=== PATIENT | female | born 1975 | race Caucasian/White ===

== ENCOUNTER 2016-07-19 08:54 | Emergency (ER) | payer MEDICAID ==
[2016-07-19] MEDS ORDERED: TRIAMCINOLONE ACETONIDE 0.1% CREAM 15 GM TOP ONE (09:41)
--- NOTE | 2016-07-19 09:46 | ER Document Report ---
ED Skin Rash/Insect Bite/Abscs - General Chief Complaint: Rash Stated Complaint: RASH ON FIGERS Time seen by provider: 09:42 Mode of Arrival: Ambulatory Information source: Patient Notes: 41-year-old female presents to ED for rash to her fingers on both hands. She states she is had this off and on for several months. She states the triamcinolone 5% cream has helped in the past. She been told that this was contact dermatitis. TRAVEL OUTSIDE OF THE [place] IN LAST 30 DAYS: No - HPI Patient complains to provider of: Skin rash/lesion Onset: Other - Several days this time Onset/Duration: Gradual Quality of pain: Burning Severity: Moderate Pain Level: 3 Skin Character: Erythema, Rash, Vesicular Quality of rash: Itchy, Painful Identify cause: No Exacerbated by: Other - Triamcinolone cream Relieved by: Denies Similar symptoms previously: Yes Recently seen / treated by doctor: No - Related Data Allergies/Adverse Reactions: brompheniramine maleate [From Dimetapp Cold-Allergy (PE)] Allergy (Verified 08:57) phenylephrine HCl [From Dimetapp Cold-Allergy (PE)] Allergy (Verified 07/19/16 08:57) Sulfa (Sulfonamide Antibiotics) Allergy (Verified 07/19/16 08:57) Past Medical History - General Information source: Patient - Social History Smoking Status: Former Smoker Cigarette use (# per day): No Chew tobacco use (# tins/day): No Smoking Education Provided: No Frequency of alcohol use: Occasional Drug Abuse: None Occupation: [employer] with: Family Family History: Arthritis, COPD, CVA, DM, Hyperlipidemia, Malignancy, Thyroid Disfunction Patient has suicidal ideation: No Patient has homicidal ideation: No - Past Medical History Cardiac Medical History: Reports: None Pulmonary Medical History: Reports: None EENT Medical History: Reports: None Neurological Medical History: Reports: Hx Migraine Endocrine Medical History: Reports: None Renal/ Medical History: Reports: None Malignancy Medical History: Reports: None GI Medical History: Reports: None Musculoskeltal Medical History: Reports Hx Musculoskeletal Deformity, Reports Hx Musculoskeletal Trauma Skin Medical History: Reports None Psychiatric Medical History: Reports: None Traumatic Medical History: Reports: Hx Fractures - Left arm and right leg and nose Infectious Medical History: Reports: None Past Surgical History: Reports: Hx Section - 3, Hx Orthopedic Surgery - Carpal tunnel surgery - Immunizations Immunizations up to date: Yes Hx Diphtheria, Pertussis, Tetanus Vaccination: Yes - 2011 Review of Systems - Review of Systems Constitutional: No symptoms reported EENT: No symptoms reported Cardiovascular: No symptoms reported Respiratory: No symptoms reported Gastrointestinal: No symptoms reported Genitourinary: No symptoms reported Female Genitourinary: No symptoms reported Musculoskeletal: No symptoms reported Skin: Rash - Bilateral hands Hematologic/Lymphatic: No symptoms reported Neurological/Psychological: No symptoms reported -: Yes All other systems reviewed and negative Physical Exam - Vital signs Vitals: Temp Pulse Resp BP Pulse Ox 98.4 F 87 18 135/79 H 97 07/19/16 08:59 07/19/16 08:59 07/19/16 08:59 07/19/16 08:59 07/19/16 08:59 Interpretation: Normal - General General appearance: Appears well, Alert - HEENT Head: Normocephalic, Atraumatic Eyes: Normal Pupils: PERRL - Respiratory Respiratory status: No respiratory distress Chest status: Nontender Breath sounds: Normal Chest palpation: Normal - Cardiovascular Rhythm: Regular Heart sounds: Normal auscultation Murmur: No - Abdominal Inspection: Normal Distension: No distension Bowel sounds: Normal Tenderness: Nontender Organomegaly: No organomegaly - Back Back: Normal, Nontender - Extremities General upper extremity: Normal inspection, Nontender, Normal color, Normal ROM , Normal temperature General lower extremity: Normal inspection, Nontender, Normal color, Normal ROM , Normal temperature, Normal weight bearing. No: Patricia's sign - Neurological Neuro grossly intact: Yes Cognition: Normal Orientation: AAOx4 [place] Coma Scale Eye Opening: Spontaneous [place] Coma Scale Verbal: Oriented [place] Coma Scale Motor: Obeys Commands [place] Coma Scale Total: 15 Speech: Normal Motor strength normal: LUE, RUE, LLE, RLE Sensory: Normal - Psychological Associated symptoms: Normal affect, Normal mood - Skin Skin Temperature: Warm Skin Moisture: Dry Skin Color: Normal Skin irregularity: Rash Location of irregularity: Extremities - Bilateral hands mostly on the fingers Course - Re-evaluation Re-evalutation: 07/19/16 09:47 Patient treated with triamcinolone as she said this is helped in the past. Patient encouraged to go to dermatology for follow-up on this. - Vital Signs Vital signs: Temp Pulse Resp BP Pulse Ox 98.3 F 85 22 H 123/76 97 07/19/16 10:31 07/19/16 10:31 07/19/16 10:31 07/19/16 10:31 07/19/16 08:59 Discharge - Discharge Clinical Impression: Contact dermatitis Qualifiers: Contact dermatitis type: unspecified Contact dermatitis trigger: unspecified trigger Qualified Code(s): L25.9 - Unspecified contact dermatitis, unspecified cause Condition: Stable Disposition: HOME, SELF-CARE Instructions: Contact Dermatitis ([facility]), Topical Steroid Cream or Ointment ([facility]) Additional Instructions: FOLLOW-UP CARE: If you have been referred to a physician for follow-up care, call the physician s office for an appointment as you were instructed or within the next two days. If you experience worsening or a significant change in your symptoms, notify the physician immediately or return to the Emergency Department at any time for re-evaluation. Prescriptions: Triamcinolone Acetonide 80 gm TP BIDP PRN #1 cream.gm. PRN Reason: Forms: Elevated Blood Pressure, Return to Work Referrals: ITZ MONREAL DO [ACTIVE STAFF] - Follow up as needed
[2016-07-19 10:33] VITALS: BP 123/76
== END 2016-07-19 10:32 | disposition home or self-care (01) ==
LOC: ER 08:54
DX: L25.9 Unspecified contact dermatitis, unspecified cause (principal); Z88.2 Allergy status to sulfonamides; Z87.891 Personal history of nicotine dependence
CPT/HCPCS: 99282; J3490

== ENCOUNTER 2016-12-03 20:22 | Emergency (ER) | payer SELFPAY ==
[2016-12-03 20:44] VITALS: BP 124/75
--- NOTE | 2016-12-03 23:54 | ER Document Report ---
HPI - HPI Patient complains to provider of: rash on hands Context: Patient is a 41-year-old female comes emergency department for chief complaint of a itchy rash on her hands, she states at first there were fluid-filled bumps which then opened and then the area became very dry. She has had "flareups" of this for a long time, recommended to see dermatology but she cannot afford it because her insurance does not cover it. She states she has had good results with topical steroids in the past. She denies diabetes. She denies fever or chills. She denies any other symptoms. - REPRODUCTIVE Reproductive: DENIES: : - DERM Skin Color: Normal, [place] Past Medical History - General Information source: Patient - Social History Smoking Status: Never Smoker Frequency of alcohol use: None Drug Abuse: None Lives with: Family Family History: Arthritis, COPD, CVA, DM, Hyperlipidemia, Malignancy, Thyroid Disfunction Neurological Medical History: Reports: Hx Migraine Renal/ Medical History: Denies: Hx Peritoneal Dialysis Musculoskeltal Medical History: Reports Hx Musculoskeletal Deformity, Reports Hx Musculoskeletal Trauma Traumatic Medical History: Reports: Hx Fractures - Left arm and right leg and nose Past Surgical History: Reports: Hx Section - 3, Hx Orthopedic Surgery - Carpal tunnel surgery - Immunizations Immunizations up to date: Yes Hx Diphtheria, Pertussis, Tetanus Vaccination: Yes - 2011 [facility] Provider Document - CONSTITUTIONAL General Appearance: WD/WN, No Apparent Distress - INFECTION CONTROL TRAVEL OUTSIDE OF THE [place] IN LAST 30 DAYS: No - HEENT HEENT: Atraumatic, Normocephalic - NECK Neck: Normal Inspection - RESPIRATORY Respiratory: Breath Sounds Normal, No Respiratory Distress O2 Sat by Pulse Oximetry: 94 - CARDIOVASCULAR Cardiovascular: Regular Rate, Regular Rhythm - GI/ABDOMEN Gastrointestinal: Abdomen Soft, Abdomen Non-Tender - BACK Back: Normal Inspection - MUSCULOSKELETAL/EXTREMETIES Musculoskeletal/Extremeties: MAEW, FROM, Non-Tender - DERM Integumentary: Rash - Over most of the fingers mainly dorsally there are multiple areas of excoriations, mild erythema, some dried cracked skin, small areas of what appear to be scratched open vesicles. No discolored drainage, no bulla, no pustules. No induration or fluctuance. Normal range of motion of the hand. Normal capillary refill and sensation. Remaining skin exam unremarkable. Course - Re-evaluation Re-evalutation: Examination is consistent with eczema. No evidence of secondary bacterial infection. Treating with triamcinolone because this has worked in the past per patient. Recommended primary care follow-up if she cannot go to dermatology, discussed return precautions. Patient states understanding and agreement. - Vital Signs Vital signs: Temp Pulse Resp BP Pulse Ox 98.7 F 79 18 124/75 94 12/03/16 20:43 12/03/16 20:43 12/03/16 20:43 12/03/16 20:43 12/03/16 20:43 Discharge - Discharge Clinical Impression: Rash of hands Condition: Stable Disposition: HOME, SELF-CARE Additional Instructions: The examination is consistent with eczema. This can respond well to topical steroids. After symptoms improve I recommend moisturizing cream. Only use the steroid cream if absolutely needed. Follow-up with primary care. Return to emergency department for any concerning worsening symptoms such as swelling of the hands, spreading redness, fever, etc. Prescriptions: Triamcinolone Acetonide 1 applic TP Q8 PRN #1 cream.gm. PRN Reason:
== END 2016-12-04 00:50 | disposition home or self-care (01) ==
LOC: ER 20:22
DX: R21 Rash and other nonspecific skin eruption (principal)
CPT/HCPCS: 99283

== ENCOUNTER → 2017-03-21 | Outpatient (CLI) | payer MEDICAID ==
--- NOTE | 2017-03-21 10:44 | WOMENS IMAGING REPORT ---
EXAM DESCRIPTION: BILAT SCREENING MAMMO W/CAD COMPLETED DATE/TIME: 03/21/2017 9:51 am REASON FOR STUDY: ROUTINE SCREENING; Z12.31 Z12.31 ENCNTR SCREEN MAMMOGRAM FOR MALIGNANT NEOPLASM O F ROB COMPARISON: None. TECHNIQUE: Standard craniocaudal and mediolateral oblique views of each breast recorded using digita l acquisition. LIMITATIONS: None. FINDINGS: No masses, calcifications or architectural distortion. No areas of suspicion. Read with the assistance of CAD. .[facility] - R2 Cenova Version 1.3 .[facility] - R2 Cenova Version 1.3 .[facility] - R2 Cenova Version 2.4 .[facility] [place] - R2 Cenova Version 2.4 .[facility] [place] - R2 Can Solderer Version 9.2 IMPRESSION: NORMAL MAMMOGRAM. BIRADS 1. BREAST DENSITY: a. The breasts are almost entirely fatty. BIRAD: 1 NEGATIVE RECOMMENDATION: ROUTINE SCREENING COMMENT: The patient has been notified of the results by letter per [place] requirements. Additional no tification policies are in place for contacting patient with suspicious or incomplete findings. Quality ID #[id number]: The [employer] recommends an annual screening mammogram for women aged 40 years or over. This facility utilizes a reminder system to ensure that all patients receive reminder letters, and/or direct phone calls for appointments. This includes reminders for routine scr eening mammograms, diagnostic mammograms, or other Breast Imaging Interventions when appropriate. Th is patient will be placed in the appropriate reminder system. The [employer] (ACR) has developed recommendations for screening MRI of the breast s in certain patient populations, to be used in conjunction with mammography. Breast MRI surveillanc e may be appropriate for women with more than 20% lifetime risk of developing breast cancer as deter mined by genetic testing, significant family history of the disease, or history of mantle radiation f or Hodgkins Disease. ACR Practice Guidelines 2008. TECHNICAL DOCUMENTATION: FINDING NUMBER: (1) ASSESSMENT: (1) JOB ID: [id number] [employer]- All Rights Reserved
== END ==
LOC: WI 09:12
PROVIDERS: ATTEND Midwife
DX: Z12.31 Encounter for screening mammogram for malignant neoplasm of breast (principal)
CPT/HCPCS: 77067; G0202

== ENCOUNTER 2017-06-18 09:28 | Emergency (ER) | payer SELFPAY ==
[2017-06-18 09:36] VITALS: BP 141/84
--- NOTE | 2017-06-18 10:03 | ER Document Report ---
ED Extremity Problem, Upper - General Chief Complaint: Shoulder Pain Stated Complaint: RIGHT SHOULDER PAIN Time Seen by Provider: 06/18/17 09:46 Mode of Arrival: Ambulatory Information source: Patient Notes: 41-year-old female presents to ED for right shoulder pain. She states she tore her rotator cuff on the right side a couple years ago did not have insurance and was not able to go to the doctor to get complete treatment. She states that yesterday she was getting her great Augustus in and out of the tub and she felt a sharp tear and then felt like a rope was swinging in her arm. She is not able to lift her arm above her head and is not able to reach her arm behind her back. States she did not go to work because the pain was so bad. Took states she took Motrin this morning but she has no one else to drive her and cannot take pain medicine and until she gets home. Has a history of a C- section but no other medical history. TRAVEL OUTSIDE OF THE [place] IN LAST 30 DAYS: No - HPI Patient complains to provider of: Injury, Pain, Right, Shoulder Onset: Yesterday Recent injury: Yes Where: Home, Indoors Quality of pain: Sharp Severity of pain: Moderate Pain Level: 4 Context: Other - Lifting her dog Exacerbated by: Movement, Exertion Relieved by: Rest, Positioning Similar symptoms previously: Yes Recently seen / treated by doctor: No - Related Data Allergies/Adverse Reactions: brompheniramine maleate [From Dimetapp Cold-Allergy (PE)] Allergy (Verified 09:49) phenylephrine HCl [From Dimetapp Cold-Allergy (PE)] Allergy (Verified 06/18/17 09:49) Sulfa (Sulfonamide Antibiotics) Allergy (Verified 06/18/17 09:49) Past Medical History - General Information source: Patient - Social History Smoking Status: Former Smoker Cigarette use (# per day): No Chew tobacco use (# tins/day): No Smoking Education Provided: No Frequency of alcohol use: Social Drug Abuse: None Occupation: [employer] Lives with: Family Family History: Arthritis, COPD, CVA, DM, Hyperlipidemia, Malignancy, Thyroid Disfunction Patient has suicidal ideation: Yes Patient has homicidal ideation: No - Past Medical History Cardiac Medical History: Reports: None Pulmonary Medical History: Reports: None EENT Medical History: Reports: None Neurological Medical History: Reports: Hx Migraine Endocrine Medical History: Reports: None Renal/ Medical History: Reports: None Malignancy Medical History: Reports: None GI Medical History: Reports: None Musculoskeltal Medical History: Reports Hx Musculoskeletal Deformity, Reports Hx Musculoskeletal Trauma Skin Medical History: Reports None Psychiatric Medical History: Reports: None Traumatic Medical History: Reports: Hx Fractures - Left arm and right leg and nose Infectious Medical History: Reports: None Past Surgical History: Reports: Hx Section - 3, Hx Orthopedic Surgery - Carpal tunnel surgery - Immunizations Immunizations up to date: Yes Hx Diphtheria, Pertussis, Tetanus Vaccination: Yes - 2011 Review of Systems - Review of Systems Constitutional: No symptoms reported EENT: No symptoms reported Cardiovascular: No symptoms reported Respiratory: No symptoms reported Gastrointestinal: No symptoms reported Genitourinary: No symptoms reported Female Genitourinary: No symptoms reported Musculoskeletal: Joint pain - right shoulder, Joint swelling - Right shoulder Skin: No symptoms reported Hematologic/Lymphatic: No symptoms reported Neurological/Psychological: No symptoms reported Physical Exam - Vital signs Vitals: Temp Pulse Resp BP Pulse Ox 98.1 F 83 18 141/84 H 96 06/18/17 09:34 06/18/17 09:34 06/18/17 09:34 06/18/17 09:34 06/18/17 09:34 Interpretation: Normal - General General appearance: Appears well, Alert - HEENT Head: Normocephalic, Atraumatic Eyes: Normal Pupils: PERRL - Respiratory Respiratory status: No respiratory distress Chest status: Nontender Breath sounds: Normal Chest palpation: Normal - Cardiovascular Rhythm: Regular Heart sounds: Normal auscultation Murmur: No - Abdominal Inspection: Normal Distension: No distension Bowel sounds: Normal Tenderness: Nontender Organomegaly: No organomegaly - Back Back: Normal, Nontender - Extremities General upper extremity: Normal color, Normal temperature General lower extremity: Normal inspection, Nontender, Normal color, Normal ROM , Normal temperature, Normal weight bearing. No: Patricia's sign Shoulder: Tender, Limited ROM. No: Abrasion, Deformity, Dislocation, Ecchymosis , Instability, Laceration - Neurological Neuro grossly intact: Yes Cognition: Normal Orientation: AAOx4 [place] Coma Scale Eye Opening: Spontaneous Story Coma Scale Verbal: Oriented Story Coma Scale Motor: Obeys Commands [place] Coma Scale Total: 15 Speech: Normal Motor strength normal: LUE, RUE, LLE, RLE Sensory: Normal - Psychological Associated symptoms: Normal affect, Normal mood - Skin Skin Temperature: Warm Skin Moisture: Dry Skin Color: Normal Course - Re-evaluation Re-evalutation: 06/18/17 11:04 Discussed x-ray with patient and written report of x-ray given to patient for follow-up with the orthopedic doctor. Patient was given instructions on ice warm packs ibuprofen and narcotics and to follow-up with orthopedic Patient encouraged to move the wrist that she does not end up with a frozen shoulder. Exercise discussed with patient. Patient able to verbalize understanding of instructions and patient was discharged home. - Vital Signs Vital signs: Temp Pulse Resp BP Pulse Ox 98.1 F 83 18 141/84 H 96 06/18/17 09:34 06/18/17 09:34 06/18/17 09:34 06/18/17 09:34 06/18/17 09:34 - Diagnostic Test Radiology reviewed: Image reviewed, Reports reviewed Procedures - Immobilization Right Shoulder Time completed: 11:04 Immobilizer type: Sling Performed by: KOREY Post-Proc Neuro Vasc Exam: Normal Alignment checked and good: Yes Discharge - Discharge Clinical Impression: Shoulder injury Qualifiers: Encounter type: initial encounter Laterality: right Qualified Code(s): S49.91XA - Unspecified injury of right shoulder and upper arm, initial encounter Condition: Stable Disposition: HOME, SELF-CARE Additional Instructions: Shoulder Injury You have injured your shoulder. This usually results from stretching or tearing of the tendons during trauma. Time and protection are required in order to heal properly. Many injuries are quite disabling, and should be taken seriously. Initial treatment includes cold packs and a sling to rest the shoulder. The physician has assessed the seriousness of your injury, and has outlined a treatment plan. Understand that this treatment may change, depending on how you progress. If a re-examination was recommended, it is important that you follow up as instructed. Some shoulder injuries (such as partial tear of the rotator cuff) are only suspected after you've failed to improve. Call us if there's severe pain, numbness, or loss of function. Exercise Program for the Shoulder Since the shoulder moves in so many directions, the joint attachment is weak. Muscles provide most of the stability to the shoulder. You must exercise your shoulder to prevent painful instability or stiffening. PASSIVE - These may be begun within a few days of the injury. While standing, lean forward, allowing the arm to hang down towards the floor. Move the arm in small circles while slowly twisting your chest towards and away from the hanging arm. Do this for one minute. ACTIVE - These may be performed when the doctor gives permission. Begin with the arms at the sides. Raise the arms forward (shoulder's width apart) until they reach shoulder level. Then slowly swing both arms back until they are aiming straight out away from each other. Then bring them forward again, and finally, lower them to your sides. Repeat 20 to 30 times. As you improve, put weights in your hands for the exercise. Start with one pound, and work up to 10 pounds. Never use more than is comfortable. Athletes may work up to 30 pounds. USE OF TYLENOL (ACETAMINOPHEN): Acetaminophen may be taken for pain relief or fever control. It's much safer than aspirin, offering a wider range of "safe" dosages. It is safe during . Some brand names are Tylenol, Panadol, Datril, Anacin 3, Tempra, and Liquiprin. Acetaminophen can be repeated every four hours. The following are maximum recommended dosages: WEIGHT Dose Drops Elixir Chewable( 80mg) (LBS.) drprs=droppers tsp=teaspoon 6 40 mg 0.4 ml (1/2) 6-11 80 mg 0.8 ml (full) tsp 1 tab 12-16 120 mg 1 1/2 drprs 3/4 tsp 1 1/2 tabs 17-23 160 mg 2 drprs 1 tsp 2 tabs 24-30 240 mg 3 drprs 1 1/2 tsp 3 tabs 30-35 320 mg 2 tsp 4 tabs 36-41 360 mg 2 1/4 tsp 4 1/2 tabs 42-47 400 mg 2 1/2 tsp 5 tabs 48-53 480 mg 3 tsp 6 tabs 54-59 520 mg 3 1/4 tsp 6 1/2 tabs 60-64 560 mg 3 1/2 tsp 7 tabs 65-70 600 mg 3 3/4 tsp 7 1/2 tabs 71-76 640 mg 4 tsp 8 tabs 77-82 720 mg 4 1/2 tsp 9 tabs 83-88 800 mg 5 tsp 10 tabs >89 pounds or adults 650 mg to 900 mg Acetaminophen can be repeated every four hours. Maximum dose not to exceed 4000 mg a day. These maximum recommended dosages are slightly higher than the dosages written on the product container, but these dosages are very safe and below the toxic dosage for acetaminophen. ICE PACKS: Apply ice packs frequently against the painful area. Many different schedules are recommended, such as "20 minutes on, 20 minutes off" or "one hour ice, two hours rest." If you need to work, you may need to go longer between ice treatments. You should plan to have the area ice packed AT LEAST one fourth of the time. The ice should be applied over the wrap, tape, or splint, or over a layer of cloth -- not directly against the skin. Some ice bags have a built-in cloth and can be put directly on the skin. WARM PACKS: After approximately two days, apply gentle heat (such as a heating pad or hot water bottle) for about 20 to 30 minutes about every two hours -- at least four times daily. Warmth and elevation will help you make a more rapid recovery , and will ease the pain considerably. Do not use HOT heat, and never apply heat for longer than 30 minutes. The continuous heat can invisibly damage skin and muscles -- even when no burn is seen on the surface. Damaged muscles can make you MORE sore. ORAL NARCOTIC MEDICATION: You have been given a prescription for pain control. This medication is a narcotic. It's best taken with food, as nausea can result if taken on an empty stomach. Don't operate machinery or drive within six hours of taking this medication. Do not combine this medicine with alcohol, or with any medication which can cause sedation (such as cold tablets or sleeping pills) unless you get permission from the physician. Narcotics tend to cause constipation. If possible, drink plenty of fluids and eat a diet high in fiber and fruits. FOLLOW-UP CARE: If you have been referred to a physician for follow-up care, call the physician s office for an appointment as you were instructed or within the next two days. If you experience worsening or a significant change in your symptoms, notify the physician immediately or return to the Emergency Department at any time for re-evaluation. Prescriptions: Hydrocodone/Acetaminophen [[place] 5-325 mg Tablet] 1 tab PO Q6HP PRN #14 tablet PRN Reason: Forms: Elevated Blood Pressure, Return to Work Referrals: GLEZ MALONEY,DANELLE L, MD [ACTIVE STAFF] - Follow up as needed
--- NOTE | 2017-06-18 10:15 | RADIOLOGY REPORT (SQ) ---
EXAM DESCRIPTION: SHOULDER RIGHT 2 OR MORE VIEWS COMPLETED DATE/TIME: 06/18/2017 10:04 am REASON FOR STUDY: pain injury COMPARISON: None. NUMBER OF VIEWS: Three views. TECHNIQUE: Internal rotation, external rotation, and Y view images acquired of the right shoulder. LIMITATIONS: None. FINDINGS: MINERALIZATION: Normal. BONES: No acute fracture or dislocation. No worrisome bone lesions. JOINTS: No glenohumeral joint malalignment. No acromioclavicular joint widening VISUALIZED LUNGS AND RIBS: No pneumothorax. No rib fracture. SOFT TISSUES: No radiopaque foreign body. OTHER: No other significant finding. IMPRESSION: No acute bony changes TECHNICAL DOCUMENTATION: JOB ID: [id number] [employer]- All Rights Reserved Reading location - IP/workstation name: [email or web address]
== END 2017-06-18 11:07 | disposition home or self-care (01) ==
LOC: ER 09:28
DX: S49.91XA Unspecified injury of right shoulder and upper arm, initial encounter (principal); M25.511 Pain in right shoulder; X50.0XXA Overexertion from strenuous movement or load, initial encounter; Y93.K9 Activity, other involving animal care; Y92.002 Bathroom of unspecified non-institutional (private) residence as the place of occurrence of the external cause; Z88.8 Allergy status to other drugs, medicaments and biological substances; Z88.2 Allergy status to sulfonamides; Z87.891 Personal history of nicotine dependence
CPT/HCPCS: 99283

== ENCOUNTER 2017-08-02 12:05 | Emergency (ER) | payer SELFPAY ==
--- NOTE | 2017-08-02 12:48 | RADIOLOGY REPORT (SQ) ---
EXAM DESCRIPTION: SHOULDER RIGHT 2 OR MORE VIEWS COMPLETED DATE/TIME: 08/02/2017 12:33 pm REASON FOR STUDY: fall COMPARISON: 06/18/2017. NUMBER OF VIEWS: Three views. TECHNIQUE: Internal rotation, external rotation, and Y view images acquired of the right shoulder. LIMITATIONS: None. FINDINGS: MINERALIZATION: Normal. BONES: No acute fracture or dislocation. No worrisome bone lesions. JOINTS: No dislocation. VISUALIZED LUNGS AND RIBS: No pneumothorax. No rib fracture. SOFT TISSUES: No radiopaque foreign body. OTHER: No other significant finding. IMPRESSION: NEGATIVE STUDY OF THE RIGHT SHOULDER. NO RADIOGRAPHIC EVIDENCE OF ACUTE INJURY. TECHNICAL DOCUMENTATION: JOB ID: [id number] [employer]- All Rights Reserved Reading location - IP/workstation name: [email or web address]
--- NOTE | 2017-08-02 13:03 | ER Document Report ---
HPI - HPI Patient complains to provider of: right shoulder injury Onset: This morning Pain Level: 5 Context: 42 yo female right shoulder jerked when she fell off the porch this morning bc she was holding onto railing. Motion was external rotation. Xray is normal today. Allergic to sulfa. Took Motrin 200mg at 10:30 just after the incident. Had MRI in past and had rotator cuff injury-never had surgery. Associated Symptoms: None Exacerbated by: Movement Relieved by: Denies - ROS ROS below otherwise negative: Yes Systems Reviewed and Negative: Yes All other systems reviewed and negative - REPRODUCTIVE Reproductive: DENIES: : Past Medical History - General Information source: Patient - Social History Smoking Status: Former Smoker - 7 years ago Drug Abuse: None Lives with: Family Family History: Arthritis, COPD, CVA, DM, Hyperlipidemia, Malignancy, Thyroid Disfunction Neurological Medical History: Reports: Hx Migraine Renal/ Medical History: Denies: Hx Peritoneal Dialysis Musculoskeltal Medical History: Reports Hx Musculoskeletal Deformity, Reports Hx Musculoskeletal Trauma Traumatic Medical History: Reports: Hx Fractures - Left arm and right leg and nose Past Surgical History: Reports: Hx Section - 3, Hx Orthopedic Surgery - Carpal tunnel surgery - Immunizations Immunizations up to date: Yes Hx Diphtheria, Pertussis, Tetanus Vaccination: Yes - 2011 Vertical Provider Document - CONSTITUTIONAL Agree With Documented VS: Yes Exam Limitations: No Limitations General Appearance: No Apparent Distress - INFECTION CONTROL TRAVEL OUTSIDE OF THE [place] IN LAST 30 DAYS: No - HEENT HEENT: Normocephalic - NECK Neck: Supple - RESPIRATORY Respiratory: Breath Sounds Normal, No Respiratory Distress - CARDIOVASCULAR Cardiovascular: Regular Rate, Regular Rhythm - BACK Back: Normal Inspection - MUSCULOSKELETAL/EXTREMETIES Musculoskeletal/Extremeties: Tender Notes: llimited ROM right shoulder due to pain, N/V intact distally, tender right periscapular pain - NEURO Level of Consciousness: Awake Motor/Sensory: No Motor Deficit, No Sensory Deficit - DERM Integumentary: No Rash Course - Re-evaluation Re-evalutation: 08/02/17 13:05 xray is neg per rad. - Vital Signs Vital signs: Temp Pulse Resp BP Pulse Ox 98.6 F 73 16 139/85 H 98 08/02/17 12:11 08/02/17 12:11 08/02/17 12:11 08/02/17 12:11 08/02/17 12:11 Procedures - Immobilization Right Arm Time completed: 13:16 Pre-Proc Neuro Vasc Exam: Normal Immobilizer type: Sling Performed by: PCT Post-Proc Neuro Vasc Exam: Normal Alignment checked and good: Yes Discharge - Discharge Clinical Impression: Right shoulder strain Qualifiers: Encounter type: initial encounter Qualified Code(s): S46.911A - Strain of unspecified muscle, fascia and tendon at shoulder and upper arm level, right arm , initial encounter Condition: Good Disposition: HOME, SELF-CARE Instructions: Sling as Treatment ([facility]), Ibuprofen (General) ([facility]), Oral Narcotic Medication ([facility]), Shoulder Injury ([facility]) Additional Instructions: sling warm compress see [facility] motrin hydrocodone for a few days to er if worse Prescriptions: Hydrocodone Bit/Acetaminophen [Hydrocodon-Acetaminophen 5-325] 1 each PO Q4HP PRN #15 tablet PRN Reason: Ibuprofen [Motrin 800 mg Tablet] 800 mg PO Q8HP PRN #30 tablet PRN Reason: Forms: Return to Work Referrals: MICHELLE SCHWARTZ MD [ACTIVE STAFF] - Follow up as needed
[2017-08-02 13:25] VITALS: BP 140/87
== END 2017-08-02 13:24 | disposition home or self-care (01) ==
LOC: ER 12:05
DX: S46.911A Strain of unspecified muscle, fascia and tendon at shoulder and upper arm level, right arm, initial encounter (principal); W17.89XA Other fall from one level to another, initial encounter; Z88.2 Allergy status to sulfonamides; Z87.891 Personal history of nicotine dependence
CPT/HCPCS: 99283

== ENCOUNTER 2017-08-04 12:14 | Emergency (ER) | payer SELFPAY ==
[2017-08-04 12:27] VITALS: BP 140/90
--- NOTE | 2017-08-04 12:53 | ER Document Report ---
ED Extremity Problem, Upper - General Chief Complaint: Shoulder Injury Stated Complaint: SHOULDER PAIN Time Seen by Provider: 08/04/17 12:41 Mode of Arrival: Ambulatory Information source: Patient TRAVEL OUTSIDE OF THE [place] IN LAST 30 DAYS: No - HPI Patient complains to provider of: Injury Notes: Patient is here with complaints of right posterior shoulder pain. She was seen here 2 days ago when she fell off of a approximately 3 foot porch and tried to catch herself and strained her right shoulder. She had x-rays at that time that showed no acute fractures or dislocations and she was placed in a sling. She was supposed to return to work today, but states that she was having too much pain and came in to get a work note for today. She denies any numbness, tingling, weakness. No chest pain or difficulty breathing. States that the pain is slightly worse when she takes a deep breath. She denies any fevers. No numbness, tingling, weakness. No abdominal pain. She denies any other complaints at this time. Her biggest concern is to get a work note for today. - Related Data Allergies/Adverse Reactions: brompheniramine maleate [From Dimetapp Cold-Allergy (PE)] Allergy (Verified 08/15 12:08) phenylephrine HCl [From [employer]et[employer] Cold-Allergy (PE)] Allergy (Verified 08/02/17 12:08) Sulfa (Sulfonamide Antibiotics) Allergy (Verified 08/02/17 12:08) Past Medical History - Social History Smoking Status: Unknown if Ever Smoked Family History: Arthritis, COPD, CVA, DM, Hyperlipidemia, Malignancy, Thyroid Disfunction Neurological Medical History: Reports: Hx Migraine Renal/ Medical History: Denies: Hx Peritoneal Dialysis Musculoskeltal Medical History: Reports Hx Musculoskeletal Deformity, Reports Hx Musculoskeletal Trauma Traumatic Medical History: Reports: Hx Fractures - Left arm and right leg and nose Past Surgical History: Reports: Hx Section - 3, Hx Orthopedic Surgery - Carpal tunnel surgery - Immunizations Immunizations up to date: Yes Hx Diphtheria, Pertussis, Tetanus Vaccination: Yes - 2011 Review of Systems - Review of Systems -: Yes All other systems reviewed and negative Physical Exam - Vital signs Vitals: Temp Pulse Resp BP Pulse Ox 97.5 F 81 20 140/90 H 97 08/04/17 12:26 08/04/17 12:26 08/04/17 12:26 08/04/17 12:26 08/04/17 12:26 - Notes Notes: GENERAL: alert, cooperative, nontoxic, no distress. HEAD: normocephalic, atraumatic EYES: conjunctiva pink without discharge, no external redness or swelling. EARS: no external swelling, no external redness NOSE: atraumatic, no external swelling MOUTH/THROAT: mucous membranes moist and pink NECK: soft, supple, full range of motion, no meningismus. CHEST: no distress, lungs clear and equal throughout. No wheezing, rales, rhonchi. CARDIAC: regular rate and rhythm, no murmur, normal capillary refill, normal pulses. BACK: full range of motion, no CVA tenderness. EXTREMITIES: Right arm in sling. Normal pulse and sensation distally. Range of motion of the right shoulder secondary to pain. Tenderness along scapular area as well as the scapular musculature. No crepitus. NEURO: alert and oriented 3, no focal deficits, full range of motion of all extremities. PYSCH: appropriate mood, affect. Patient is cooperative. SKIN: pink, warm, dry, no rash. Course - Re-evaluation Re-evalutation: 08/04/17 12:50 Patient is nontoxic appearing with stable vitals. She is here with complaints of needing a work note after injuring her right shoulder on Friday. She was seen here at that time and had negative x-rays and was placed in a sling. She was expecting to go to work this morning, but when she woke up she states that she was having too much pain and was not able to go. She states that she needs a work note for today. No new injury since being seen on Friday. She has a normal neurovascular exam. I did offer a chest x-ray since she is having pain around her scapular area, she declined to have that done at this time. This point the patient can be discharged home with a work note. She is instructed to follow-up with Dr. Schwartz who she seen in the past or her primary care doctor if her pain persists. Follow-up sooner for worsening pain, fever, numbness, tingling, weakness, any further concerns. The patient is noted to have elevated blood pressure during today's emergency department visit. The patient was informed of this finding. The patient was instructed that this may be related to pre-hypertension and requires further evaluation with a primary care provider. The patient has no hypertensive symptoms at this time. The patient's emergency department workup and current diagnosis were explained to the patient and or family. Follow-up instructions were provided. Medications if prescribed were discussed. Instructions for when to return to the emergency department including specific worrisome symptoms were discussed with the patient and/or family. - Vital Signs Vital signs: Temp Pulse Resp BP Pulse Ox 97.5 F 81 20 140/90 H 97 08/04/17 12:26 08/04/17 12:26 08/04/17 12:26 08/04/17 12:26 08/04/17 12:26 Discharge - Discharge Clinical Impression: Right shoulder strain Qualifiers: Encounter type: subsequent encounter Qualified Code(s): S46.911D - Strain of unspecified muscle, fascia and tendon at shoulder and upper arm level, right arm , subsequent encounter Condition: Stable Disposition: HOME, SELF-CARE Instructions: Sling as Treatment ([facility]), Shoulder Injury ([facility]) Additional Instructions: Continue to use sling as needed for comfort. Ice to sore area. Follow-up with your orthopedist or your family doctor if not better in the next few days, sooner for worsening pain, fever, numbness, tingling, weakness, any further concerns. Your blood pressure was elevated during today's visit. Have this rechecked with your doctor. Forms: Elevated Blood Pressure, Smoking Cessation Education, Return to Work Referrals: MICHELLE SCHWARTZ MD [ACTIVE STAFF] - Follow up as needed
== END 2017-08-04 13:05 | disposition home or self-care (01) ==
LOC: ER 12:14
DX: S46.911A Strain of unspecified muscle, fascia and tendon at shoulder and upper arm level, right arm, initial encounter (principal); M25.511 Pain in right shoulder; W17.89XA Other fall from one level to another, initial encounter; R03.0 Elevated blood-pressure reading, without diagnosis of hypertension; Z88.8 Allergy status to other drugs, medicaments and biological substances; Z88.2 Allergy status to sulfonamides
CPT/HCPCS: 99283

== ENCOUNTER 2019-08-10 13:40 | Emergency (ER) | payer MEDICAID, OTHER ==
[2019-08-10] MEDS ORDERED: KETOROLAC TROMETHAMINE 60 MG/2 ML SDV IM ONE (14:21)
--- NOTE | 2019-08-10 14:23 | ER Document Report ---
ED General - General Chief Complaint: Shoulder Injury Stated Complaint: LEFT SHOULDER PAIN Time Seen by Provider: 08/10/19 13:51 Notes: 44-year-old woman presents to the emergency department with a complaint of left shoulder pain. States that she was doing yard work on Friday and felt some pain in the shoulder on Friday the shoulder popped and she has been having decreased range of motion and increased pain since that time. He was at work today and her employer suggested she go and see someone about her shoulder. TRAVEL OUTSIDE OF THE [place] IN LAST 30 DAYS: No - HPI Onset: Last week - Related Data Allergies/Adverse Reactions: brompheniramine maleate [From Dimetapp Cold-Allergy (PE)] Allergy (Verified 08/02/17 12:08) phenylephrine HCl [From [employer]etapp Cold-Allergy (PE)] Allergy (Verified 08/02/17 12:08) Sulfa (Sulfonamide Antibiotics) Allergy (Verified 08/02/17 12:08) Past Medical History - Social History Smoking Status: Unknown if Ever Smoked Family History: Arthritis, COPD, CVA, DM, Hyperlipidemia, Malignancy, Thyroid Di sfunction Neurological Medical History: Reports: Hx Migraine Renal/ Medical History: Denies: Hx Peritoneal Dialysis Musculoskeletal Medical History: Reports Hx Musculoskeletal Deformity, Reports Hx Musculoskeletal Trauma Traumatic Medical History: Reports: Hx Fractures - Left arm and right leg and nose Past Surgical History: Reports: Hx Section - 3, Hx Orthopedic Surgery - Carpal tunnel surgery - Immunizations Immunizations up to date: Yes Hx Diphtheria, Pertussis, Tetanus Vaccination: Yes - 2011 Review of Systems - Review of Systems Notes: Constitutional: Negative for fever. HENT: Negative for sore throat. Eyes: Negative for visual changes. Cardiovascular: Negative for chest pain. Respiratory: Negative for shortness of breath. Gastrointestinal: Negative for abdominal pain, vomiting or diarrhea. Genitourinary: Negative for dysuria. Musculoskeletal: + Left shoulder pain. Skin: Negative for rash. Neurological: Negative for headaches, weakness or numbness. 10 point ROS negative except as marked above and in HPI. Physical Exam - Vital signs Vitals: Temp 98.7 F 08/10/19 13:43 - Notes Notes: PHYSICAL EXAMINATION: Physical Exam: General: Well-nourished well-developed 44-year-old woman in no acute distress HEENT: NC/AT, pupils equal round and reactive to light, MM moist,nares clear, oropharynx clear, airway patent Neck: supple, no adenopathy, no masses. Good range of motion Lungs: clear, no wheezing, no rales no rhonchi CVS: Regular rate and rhythm no murmur gallop or rub Abdomen: Soft, active, nontender, no masses, no hepatosplenomegaly Ext: Left shoulder with decreased range of motion secondary to tenderness, unable to Abduct or abduct the shoulder without significant pain. Neuro: Alert and responsive, moving all 4 extremities on command, cranial nerves intact, no focal findings Skin: Intact no open lesions, no rash PSYCH: Normal mood, normal affect. Course - Vital Signs Vital signs: Temp Pulse Resp BP Pulse Ox 97.9 F 80 17 138/75 H 98 08/10/19 16:29 08/10/19 16:29 08/10/19 16:29 08/10/19 16:29 08/10/19 16:29 - Diagnostic Test Radiology reviewed: Image reviewed, Reports reviewed - Left shoulder x-ray: No bony abnormalities noted. Radiology results interpreted by me: 08/10/19 16:13 Left shoulder pain, improved with Toradol, suggest sling and follow-up with orthopedist. Patient is in agreement with that plan. Discharge - Discharge Clinical Impression: Strain of left shoulder Qualifiers: Encounter type: initial encounter Qualified Code(s): S46.912A - Strain of unspecified muscle, fascia and tendon at shoulder and upper arm level, left arm, initial encounter Left shoulder pain Qualifiers: Chronicity: acute Qualified Code(s): M25.512 - Pain in left shoulder Condition: Good Disposition: HOME, SELF-CARE Instructions: Pain Medication Injection ([facility]), Sling as Treatment ([facility]) Additional Instructions: You are treated in the emergency department today with left shoulder pain and we are treating you with a sling and anti-inflammatory medications with muscle relaxant. You are to follow-up with orthopedist physician, phone number and name given as a referral. Please call and make the appointment soon as possible. HOME CARE INSTRUCTIONS & INFORMATION: Thank you for choosing us for your medical needs. We hope you're satisfied with the care you received. After you leave, you must properly care for your problem and, at the same time, observe its progress. Any condition can change. Some illnesses can change rapidly over hours or days. If your condition worsens, return to the Emergency Department or see your physician promptly. ABOUT YOUR X-RAYS AND EKG'S: If you had an EKG or X-rays taken, they have been read by the Emergency Physician. The X-rays and EKG's will also be read by a Radiologist or Glass Fitter within 24 hours. If discrepancies are noted, you will be notified by telephone. Please be certain the ED has a correct telephone number & address where you can be reached. Also, realize that some fractures or abnormalities do not show up on initial X-rays. If your symptoms continue, see your physician. ABOUT YOUR LABORATORY TEST: If you had laboratory tests, the results have been reviewed by the Emergency Physician. Some test results (for example cultures) may not be available for several days. You will be contacted if any test result shows you need additional treatment. Please be certain the ED has a correct telephone number and address where you can be reached. ABOUT YOUR MEDICATIONS: You will receive instructions on how to take your medicine on the prescription label you receive. Additional information may be provided by the Pharmacy. If you have questions afterwards, call the ED for clarification or further instructions. Some prescribed medications may cause drowsiness. Do not perform tasks such as driving a car or operating machinery without consulting your Pharmacist. If you feel you need a refill of pain medication, your condition will need re-evaluation. Please do not call for a refill of any medication. ABOUT YOUR SIGNATURE: Signature of this document acknowledges to followin. Understanding that you received emergency treatment and that you may be released before al medical problems are known or treated. Please be certain the ED has a correct phone number & address where you can be reached. 2. Acknowledgement that you will arrange for follow-up care as recommended. 3. Authorization for the Emergency Physician to provide information to your follow-up Physician in order to maximize your care. AT ANY TIME, IF YOUR SYMPTOMS CHANGE SIGNIFICANTLY OR WORSEN OR YOU DEVELOP NEW SYMPTOMS, RETURN TO THE EMERGENCY DEPARTMENT IMMEDIATELY FOR RE-EVALUATION. OUR GOAL IS TO PROVIDE EXCELLENT MEDICAL CARE! WE HOPE THAT WE HAVE MET YOUR EXPECTATIONS DURING YOUR EMERGENCY DEPARTMENT VISIT AND THAT YOU FEEL YOU HAVE RECEIVED EXCELLENT CARE! Prescriptions: Baclofen [Baclofen 10 mg Tablet] 10 mg PO TID #30 tab Naproxen [Naprosyn] 500 mg PO BID #20 tablet Forms: Return to School
--- NOTE | 2019-08-10 14:53 | RADIOLOGY REPORT (SQ) ---
EXAM DESCRIPTION: SHOULDER LEFT 2 OR MORE VIEWS IMAGES COMPLETED DATE/TIME: 08/10/2019 2:45 pm REASON FOR STUDY: Left shoulder pain following trauma. COMPARISON: None. NUMBER OF VIEWS: Three views. TECHNIQUE: Internal rotation, external rotation, and Y view images acquired of the left shoulder. LIMITATIONS: None. FINDINGS: MINERALIZATION: Normal. BONES: No acute fracture. No worrisome bone lesions. JOINTS: No dislocation. VISUALIZED LUNGS AND RIBS: No pneumothorax. No rib fracture. SOFT TISSUES: No radiopaque foreign body. OTHER: No other significant finding. IMPRESSION: NEGATIVE STUDY OF THE LEFT SHOULDER. NO RADIOGRAPHIC EVIDENCE OF ACUTE INJURY. TECHNICAL DOCUMENTATION: JOB ID: [id number] 2010 [employer]- All Rights Reserved Reading location - IP/workstation name: [email or web address]
[2019-08-10 16:30] VITALS: BP 138/75
== END 2019-08-10 16:31 | disposition home or self-care (01) ==
LOC: ER 13:40
DX: S46.912A Strain of unspecified muscle, fascia and tendon at shoulder and upper arm level, left arm, initial encounter (principal); M25.512 Pain in left shoulder; X58.XXXA Exposure to other specified factors, initial encounter; Y93.H2 Activity, gardening and landscaping; Z88.2 Allergy status to sulfonamides; Z88.8 Allergy status to other drugs, medicaments and biological substances
CPT/HCPCS: 99283; 96372; 73030; J1885